=== PATIENT | female | born 1935 | race Caucasian/White ===

== ENCOUNTER → 2021-06-13 11:24 | Outpatient (CLI) | payer MEDICARE, BC, SELFPAY ==
--- NOTE | 2021-06-13 11:50 | RAD_ITS ---
STUDY: X-RAY - ABDOMEN/PELVIS REASON FOR EXAM: Female, 86 years old. CALCULUS OF KIDNEY TECHNIQUE: Single AP view of the abdomen / pelvis. COMPARISON: None. FINDINGS: Normal visualized lung bases. There is an unremarkable bowel gas pattern. The visualized liver, spleen and kidneys are grossly normal in size and morphology. Normal soft tissue structures. S-shaped scoliosis of the lumbar spine with degenerative disc disease. RAD/Abdomen Single View IMPRESSION: Normal x-ray examination of the abdomen and pelvis. Electronically Signed: Nicolas Monson MD at 9:25 EST Tel , Service support ,
== END ==
PROVIDERS: PCP Family Medicine; Referring Provider Urology; Visit Provider Urology
DX: N20.0 Calculus of kidney (principal); R31.0 Gross hematuria
CPT/HCPCS: 74018

== ENCOUNTER 2021-10-30 11:33 | Day surgery (SDC) | payer MEDICARE, BC, SELFPAY ==
[2021-10-30 12:10] VITALS: BP 148/74; PULSE 65; RESP 18; TEMP 36.4; O2SAT 100; BMI 26.6
[2021-10-30] MEDS: Lactated Ringers 1,000 ML 15 ML IV (12:10)
[2021-10-30] MEDS: Cefazolin 2 GM in 0.9% Normal Saline 100 ML IV (15:32)
--- NOTE | 2021-10-30 15:43 | PCM.HP.STD ---
HPI - General HPI Narrative ADEN HAGAN, is a 86 F who presents for treatment of left kidney stones. [facility] Medical History (Updated 10/30/21 @ 15:[address] Brian Snow MD) Anxiety Arthritis Asthma Back pain [facility] Cardiology follow-up encounter Chronic cough CPAP (continuous positive airway pressure) dependence Diverticulosis Easy bruising Excessive bleeding Gastric reflux High cholesterol History of atrial fibrillation History of CHF (congestive heart failure) History of echocardiogram History of stress test Hoarseness Hypertension Injury of head and neck Leg cramps Migraine headache Non-smoker Post-menopausal Shortness of breath on exertion Sleep apnea Thyroid disease Home Medications Flovent HFA 2 puff INHALATION DAILY 10/22/21 [History Last Taken Unknown] Xarelto 20 mg PO DAILY 10/22/21 [History Last Taken 10/27/21] acetaminophen 325 mg PO Q6H PRN 10/22/21 [History Last Taken Unknown] albuterol sulfate [ProAir HFA] 2 inh INHALATION PRN PRN 10/22/21 [History Last Taken Unknown] aspirin 81 mg PO DAILY 10/22/21 [History Last Taken 10/25/21] atorvastatin 20 mg PO QHS 10/22/21 [History Last Taken Unknown] calcium carbonate-vitamin D3 [Calcium 600 with Vitamin D3] 1 cap PO DAILY 10/22/21 [History Last Taken Unknown] docusate sodium [DOK] 100 mg PO DAILY 10/22/21 [History Last Taken Unknown] estradiol 1 applic VAGINAL .TWICE WEEKLY 10/22/21 [History Last Taken Unknown] levothyroxine [Synthroid] 100 mcg PO DAILY 10/22/21 [History Last Taken Unknown] magnesium 250 mg PO DAILY 10/22/21 [History Last Taken Unknown] metoprolol succinate 12.5 mg PO DAILY 10/22/21 [History Last Taken Unknown] omeprazole 10 mg PO DAILY 10/22/21 [History Last Taken Unknown] polyethylene glycol 3350 [Miralax] 17 g PO DAILY 10/22/21 [History Last Taken Unknown] potassium 99 mg PO DAILY 10/22/21 [History Last Taken Unknown] cephalexin 500 mg PO TID #15 cap 10/30/21 [Rx Last Taken Unknown] oxycodone-acetaminophen 1 tab PO Q6H PRN 7 Days #10 tab 10/30/21 [Rx Last Taken Unknown] Allergy/AdvReac Type Severity Reaction Status Date / Time levofloxacin [From Levaquin] Allergy Rash Verified 10/30/21 12:14 oxybutynin [From Ditropan] Allergy Rash Verified 10/30/21 12:14 CHLORA-PREP Allergy Rash Uncoded 10/30/21 12:14 STEROIDS Allergy Rash Uncoded 10/30/21 12:14 Surgical History (System 10/29/21 @ 14:31 by Alexus Gomez) Hx of elbow surgery Hx of hysterectomy Hx of thyroidectomy Hx of tonsillectomy Social History (System 10/29/21 @ 14:31 by Alexus Gomez) Smoking Status: Never smoker Vital Signs Vital Signs Vital Signs: 10/30/21 12:10 Temperature 97.6 F L Temperature Source Temporal Pulse Rate 65 Respiratory Rate 18 Respiratory Pattern Normal Blood Pressure 148/74 H Blood Pressure Mean 98 Blood Pressure Source Monitor Blood Pressure Position Sitting Blood Pressure Location Left Arm Pulse Ox 100 Oxygen Delivery Method Room Air Weight Weight: 62 kg Body Mass Index (BMI) 26.6
--- NOTE | 2021-10-30 15:44 | PCM.DC ---
Discharge Instructions Diet Discharge Diet: No restrictions Activity Discharge Activity: Return to Normal Activity and May Not Drive (while taking narcotic pain medications.) Dressing / Incision Call your doctor if you observe: Fever of 101 or Higher Follow Up Care Please Follow Up With: Brian Snow MD When: Call [phone] for an appointment Test Results: Test results from this visit will be discussed in further detail at your follow-up appointment, if applicable. Discharge Plan Admission Primary Reason for Your Visit: KIDNEY STONE Attending Provider: Brian Snow Primary Care Provider: Ramirez Watson Discharge Orders/Prescriptions Prescriptions: New cephalexin 500 mg capsule 500 mg PO TID Qty: 15 RF: 0 oxycodone-acetaminophen 5-325 mg tablet 1 tab PO Q6H PRN (Reason: pain) 7 Days Qty: 10 RF: 0 Continued acetaminophen 325 mg Tablet 325 mg PO Q6H PRN (Reason: Pain) RF: 0 polyethylene glycol 3350 [Miralax] 17 gram Powder In Packet 17 g PO DAILY RF: 0 atorvastatin 10 mg tablet 20 mg PO QHS RF: 0 levothyroxine [Synthroid] 100 mcg tablet 100 mcg PO DAILY RF: 0 potassium 99 mg Tablet 99 mg PO DAILY RF: 0 omeprazole 10 mg capsule,delayed release(DR/EC) 10 mg PO DAILY RF: 0 docusate sodium [DOK] 100 mg capsule 100 mg PO DAILY RF: 0 magnesium 250 mg Tablet 250 mg PO DAILY RF: 0 metoprolol succinate 25 mg tablet extended release 24 hr 12.5 mg PO DAILY RF: 0 estradiol 0.01 % (0.1 mg/gram) cream 1 applic VAGINAL .TWICE WEEKLY RF: 0 albuterol sulfate [ProAir HFA] 90 mcg/actuation HFA aerosol inhaler 2 inh INHALATION PRN PRN (Reason: ASTHMA) RF: 0 Flovent HFA 110 mcg/actuation HFA aerosol inhaler 2 puff INHALATION DAILY RF: 0 calcium carbonate-vitamin D3 [Calcium 600 with Vitamin D3] 600 mg-12.5 mcg (500 unit) Capsule 1 cap PO DAILY RF: 0 Xarelto 20 mg Tablet 20 mg PO DAILY RF: 0 aspirin 81 mg Capsule 81 mg PO DAILY RF: 0 Referrals / Follow Up: Brian Snow MD [STAFF PHYSICIAN] - Ramirez Watson MD [Primary Care Provider] - Disposition Disposition (needs filled in before D/C Order can be placed): Home, Self Care
--- NOTE | 2021-10-30 16:11 | OP.PCM_ITS ---
Report of Operation Date of Procedure: 10/30/21 Pre-Operative Diagnosis: Left renal calculi causing obstruction Post-Operative Diagnosis: The same Surgery/Procedure Performed:: Cystoscopy, left retrograde pyelogram, interpretation fluoroscopic images, left ureteroscopy laser lithotripsy of stone and left stent placement Description of Surgical Findings:: Indication is an 86-year-old female who presented to the outside emergency room with severe pain from a stone in the left kidney causing blood in the urine and flank pain since it has been resolved but in reviewing her images she had a 4 mm stone causing intermittent obstruction recommended we take her surgery to treat the stone. Patient was taken back to the operating room at the smooth induction of anesthesia she was placed in dorsolithotomy position. The urethra vaginal area prepped and draped in usual sterile fashion went of the bladder with a 21 Bulgarian rigid cystourethroscope the entire bladder was normal and there is no tumors or stones within the bladder I then cannulated the left ureter orifice with a Glidewire advanced up to the kidney over the wire went in with a flexible ureteroscope and encountered that she had a very tortuous proximal ureter due to the stone causing obstruction and tortuosity to the ureter I then at the use a wire to advance a Pollack catheter performed a retrograde pyelogram I then used a Super Stiff wire to straighten out the ureter and then over the Super Stiff wire was able to go in with a flexible ureteroscope once I got into the kidney with the Super Stiff wire then I was able to find the stone is a 4 mm stone that was causing obstruction at the kinking of the ureter and then I lasered the stone little tiny pieces using a 270 ?m laser fiber and then once this was in place then given the severe tortuosity of the ureter I thought it be best to leave a stent so I backloaded a wire through the flexible scope work my way down the ureter and then put a stent up on the left side once the stent was in good position I pulled the wire the stent coiled in the kidney bladder good position see her back in about 2 weeks to remove the stent. Surgeon: lianne Type of Anesthesia: General Drains: stent left Admit VTE Documentation VTE Present on Admission: No VTE Mechan Device Prophylaxis: SCD's VTE Pharm Prophylaxis ordered?: No
[2021-10-30 16:20] VITALS: BP 148/74; BP 156/79; PULSE 63; RESP 16; TEMP 36.7; O2SAT 97
[2021-10-30 16:30] VITALS: BP 148/74; BP 180/94; PULSE 65; RESP 16; O2SAT 98
[2021-10-30 16:45] VITALS: BP 148/74; BP 177/82; PULSE 61; RESP 16; O2SAT 99
[2021-10-30 17:15] VITALS: BP 148/74; BP 163/67; PULSE 57; RESP 16; TEMP 36.7; O2SAT 94
[2021-10-30] MEDS: Acetaminophen 325 MG Tablet 650 MG PO (17:37)
[2021-10-30 17:53] VITALS: BP 148/74; BP 175/73; PULSE 55; RESP 16; TEMP 36.7; O2SAT 99
== END 2021-10-30 23:59 | disposition home or self-care (01) ==
LOC: SDC 11:34 → AC 11:38
PROVIDERS: PCP Family Medicine; Visit Provider Urology
PROC: 0TJ98ZZ Inspection of Ureter, Via Natural or Artificial Opening Endoscopic (ICD-10-PCS; CPT 52352; principal; 2021-10-30 13:55)
DX: N20.0 Calculus of kidney (principal); I48.91 Unspecified atrial fibrillation; I10 Essential (primary) hypertension; J45.20 Mild intermittent asthma, uncomplicated; E03.9 Hypothyroidism, unspecified; K21.9 Gastro-esophageal reflux disease without esophagitis; E78.00 Pure hypercholesterolemia, unspecified; F41.9 Anxiety disorder, unspecified; R05.3 Chronic cough; G47.30 Sleep apnea, unspecified; M19.90 Unspecified osteoarthritis, unspecified site; Z78.0 Asymptomatic menopausal state; Z87.19 Personal history of other diseases of the digestive system; Z95.1 Presence of aortocoronary bypass graft; Z79.899 Other long term (current) drug therapy; Z79.82 Long term (current) use of aspirin; Z79.01 Long term (current) use of anticoagulants; Z87.442 Personal history of urinary calculi
CPT/HCPCS: 52356; 00872; 76000; J7120; C1769; C2617; J2405